=== PATIENT | male | born 1990 | race Caucasian/White ===

== ENCOUNTER 2018-06-22 17:01 | Emergency (ER) | payer OTHER ==
[2018-06-22 17:13] VITALS: BP 136/93
[2018-06-22] MEDS ORDERED: Ondansetron 4 MG/2 ML SDV IVPUSH ONE (17:39)
[2018-06-22] MEDS ORDERED: Sodium Chloride 0.9% 1,000 ML IV ONE (17:39)
[2018-06-22] MEDS ORDERED: Morphine 4 MG/ML Syringe IVPUSH ONE (17:39)
--- NOTE | 2018-06-22 17:44 | EDM.PDOC ---
ED HPI GENERAL MEDICAL PROBLEM - General Chief Complaint: Abdominal Pain Stated Complaint: ABDOMINAL PAIN Time Seen by Provider: 06/22/18 17:06 Source of Information: Reports: Patient History Limitations: Reports: No Limitations - History of Present Illness INITIAL COMMENTS - FREE TEXT/NARRATIVE: 27-year-old male no significant past medical history presenting with a chief complaint of abdominal pain. Pain started 2 days ago. It is located in the left upper quadrant, intermittent, worsening in nature. Associated with nausea and nonbloody nonbilious vomiting. Patient's last bowel movement was yesterday and normal. Patient has no history of abdominal surgeries. Of note his family's been sick recently with nausea and vomiting however they improved and he hasn' t. Patient denies any dysuria or hematuria. Associated Symptoms: Reports: No Other Symptoms Left Upper Abdominal Pain Score (Numeric/FACES): 8 - Related Data Allergies Allergy/AdvReac Type Severity Reaction Status Date / Time No Known Allergies Allergy Verified 06/22/18 17:10 Home Meds: Home Meds Albuterol Sulfate [Proair Hfa] 2 puff INH Q4H PRN 06/22/18 [History] Past Medical History - Past Health History Medical/Surgical History: Denies Medical/Surgical History Respiratory History: Reports: Asthma - Past Surgical History HEENT Surgical History: Reports: Oral Surgery, Tonsillectomy Other Musculoskeletal Surgeries/Procedures:: ganglion removal R wrist Social & Family History - Tobacco Use Smoking Status *Q: Current Every Day Smoker Years of Tobacco use: 13 Packs/Tins Daily: 0.5 - Caffeine Use Caffeine Use: Reports: None - Recreational Drug Use Recreational Drug Use: No ED ROS GENERAL - Review of Systems Review Of Systems: See Below Constitutional: Reports: No Symptoms HEENT: Reports: No Symptoms Respiratory: Reports: No Symptoms Cardiovascular: Reports: No Symptoms Endocrine: Reports: No Symptoms GI/Abdominal: Reports: Abdominal Pain, Nausea, Vomiting : Reports: No Symptoms Musculoskeletal: Reports: No Symptoms Skin: Reports: No Symptoms Neurological: Reports: No Symptoms ED EXAM, GI/ABD - Physical Exam Exam: See Below Exam Limited By: No Limitations General Appearance: Alert, No Apparent Distress Head: Atraumatic, Normocephalic Neck: Normal Inspection Respiratory/Chest: No Respiratory Distress, Lungs Clear Cardiovascular: Regular Rate, Rhythm, No Murmur GI/Abdominal Exam: Other (Abdomen is soft, tender to light palpation of the left upper quadrant with some rebound and guarding) Back Exam: Normal Inspection, Full Range of Motion, Other (No CVA tenderness palpation) Extremities: Normal Inspection Neurological: Alert, Oriented, CN II-XII Intact, No Motor/Sensory Deficits Psychiatric: Normal Affect Skin Exam: Warm, Dry, Intact Lymphatic: No Adenopathy Course - Vital Signs Last Recorded V/S: Last Vital Signs Temp 37.3 C 06/22/18 17:10 Pulse 70 06/22/18 17:10 Resp 16 06/22/18 17:10 BP 136/93 H 06/22/18 17:10 Pulse Ox 98 06/22/18 17:10 - Orders/Labs/Meds Orders: Active Orders 24 hr Category Date Time Status UA W/MICROSCOPIC [URIN] Stat Lab 06/22/18 18:55 Ordered Labs: Laboratory Tests 06/22/18 06/22/18 06/22/18 Range/Units 17:45 17:45 17:45 WBC 10.09 H (4.23-9.07) K/mm3 RBC 5.57 (4.63-6.08) M/mm3 Hgb 16.6 (13.7-17.5) gm/L Hct 49.3 (40.1-51.0) % MCV 88.5 (79.0-92.2) fl MCH 29.8 (25.7-32.2) pg MCHC 33.7 (32.2-35.5) g/dl RDW Std Deviation 41.7 (35.1-43.9) fL Plt Count 280 (163-337) K/mm3 MPV 10.3 (9.4-12.3) fl Neut % (Auto) 60.3 (34.0-67.9) % Lymph % (Auto) 25.0 (21.8-53.1) % [place] % (Auto) 9.7 (5.3-12.2) % Eos % (Auto) 4.2 (0.8-7.0) Baso % (Auto) 0.6 (0.1-1.2) % Neut # (Auto) 6.09 H (1.78-5.38) K/mm3 Lymph # (Auto) 2.52 (1.32-3.57) K/mm3 [place] # (Auto) 0.98 H (0.30-0.82) K/mm3 Eos # (Auto) 0.42 (0.04-0.54) K/mm3 Baso # (Auto) 0.06 (0.01-0.08) K/mm3 Sodium 141 (136-145) mEq/L Potassium 3.9 (3.5-5.1) mEq/L Chloride 104 (98-107) mEq/L Carbon Dioxide 29 (21-32) mEq/L Anion Gap 11.9 (5-15) BUN 7 (7-18) mg/dL Creatinine 1.1 (0.7-1.3) mg/dL Est Cr Clr Drug Dosing 86.59 mL/min Estimated GFR (MDRD) > 60 (>60) mL/min BUN/Creatinine Ratio 6.4 L (14-18) Glucose 104 (74-106) mg/dL Calcium 8.8 (8.5-10.1) mg/dL Total Bilirubin 0.5 (0.2-1.0) mg/dL AST 20 (15-37) U/L ALT 19 (16-63) U/L Alkaline Phosphatase 79 (46-116) U/L Total Protein 7.8 (6.4-8.2) g/dl Albumin 4.2 (3.4-5.0) g/dl Globulin 3.6 gm/dL Albumin/Globulin Ratio 1.2 (1-2) Lipase 126 (73-393) U/L Urine Color (Yellow) Urine Appearance (Clear) Urine pH (5.0-8.0) Ur Specific [place] (1.005-1.030) Urine Protein (Negative) Urine Glucose (UA) (Negative) Urine Ketones (Negative) Urine Occult Blood (Negative) Urine Nitrite (Negative) Urine Bilirubin (Negative) Urine Urobilinogen (0.2-1.0) Ur Leukocyte Esterase (Negative) Urine RBC (0-5) /hpf Urine WBC (0-5) /hpf Ur Epithelial Cells (0-5) /hpf Urine Bacteria (FEW) /hpf Urine Mucus (FEW) /hpf 06/22/18 Range/Units 18:55 WBC (4.23-9.07) K/mm3 RBC (4.63-6.08) M/mm3 Hgb (13.7-17.5) gm/L Hct (40.1-51.0) % MCV (79.0-92.2) fl MCH (25.7-32.2) pg MCHC (32.2-35.5) g/dl RDW Std Deviation (35.1-43.9) fL Plt Count (163-337) K/mm3 MPV (9.4-12.3) fl Neut % (Auto) (34.0-67.9) % Lymph % (Auto) (21.8-53.1) % [place] % (Auto) (5.3-12.2) % Eos % (Auto) (0.8-7.0) Baso % (Auto) (0.1-1.2) % Neut # (Auto) (1.78-5.38) K/mm3 Lymph # (Auto) (1.32-3.57) K/mm3 [place] # (Auto) (0.30-0.82) K/mm3 Eos # (Auto) (0.04-0.54) K/mm3 Baso # (Auto) (0.01-0.08) K/mm3 Sodium (136-145) mEq/L Potassium (3.5-5.1) mEq/L Chloride (98-107) mEq/L Carbon Dioxide (21-32) mEq/L Anion Gap (5-15) BUN (7-18) mg/dL Creatinine (0.7-1.3) mg/dL Est Cr Clr Drug Dosing mL/min Estimated GFR (MDRD) (>60) mL/min BUN/Creatinine Ratio (14-18) Glucose (74-106) mg/dL Calcium (8.5-10.1) mg/dL Total Bilirubin (0.2-1.0) mg/dL AST (15-37) U/L ALT (16-63) U/L Alkaline Phosphatase (46-116) U/L Total Protein (6.4-8.2) g/dl Albumin (3.4-5.0) g/dl Globulin gm/dL Albumin/Globulin Ratio (1-2) Lipase (73-393) U/L Urine Color Yellow (Yellow) Urine Appearance Clear (Clear) Urine pH 7.0 (5.0-8.0) Ur Specific [place] 1.020 (1.005-1.030) Urine Protein Trace H (Negative) Urine Glucose (UA) Negative (Negative) Urine Ketones Negative (Negative) Urine Occult Blood Negative (Negative) Urine Nitrite Negative (Negative) Urine Bilirubin Negative (Negative) Urine Urobilinogen 1.0 (0.2-1.0) Ur Leukocyte Esterase Negative (Negative) Urine RBC Not seen (0-5) /hpf Urine WBC Not seen (0-5) /hpf Ur Epithelial Cells 0-5 (0-5) /hpf Urine Bacteria Not seen (FEW) /hpf Urine Mucus Not seen (FEW) /hpf Meds: Medications Discontinued Medications Generic Name Dose Route Start Last Admin Trade Name Freq PRN Reason Stop Dose Admin Diatrizoate Meglum/Diatrizoate Sod 90 ml 06/22/18 19:38 06/22/18 19:51 Gastrografin 37% PO 06/22/18 19:39 90 ml ONETIME ONE Administration Sodium Chloride 1,000 mls @ 999 mls/hr 06/22/18 17:39 06/22/18 17:56 Normal Saline IV 06/22/18 18:39 999 mls/hr ONETIME ONE Administration Iopamidol 125 ml 06/22/18 19:38 06/22/18 19:51 Isovue-300 (61%) IVPUSH 06/22/18 19:39 125 ml ONETIME ONE Administration Morphine Sulfate 4 mg 06/22/18 17:39 06/22/18 17:56 Morphine IVPUSH 06/22/18 17:40 4 mg ONETIME ONE Administration Ondansetron HCl 4 mg 06/22/18 17:39 06/22/18 17:56 Zofran IVPUSH 06/22/18 17:40 4 mg ONETIME ONE Administration - Re-Assessments/Exams Free Text/Narrative Re-Assessment/Exam: 06/22/18 20:59 27-year-old male with no significant past medical history presenting with a chief complaint of abdominal pain. Upon initial evaluation the patient has normal vital signs and appears nontoxic. Physical exam is notable for tenderness to palpation left upper quadrant some rebound tenderness as well as guarding. Otherwise physical exam is unremarkable. CMP, CBC were normal, urinalysis not suggestive of stone or infection. Due to the patient's physical exam with rebound tenderness and guarding elected to obtain CT imaging of his abdomen which shows no obvious cause for the patient's abdominal pain. Patient was treated initially with 1 L normal saline bolus as well as 4 mg IV Zofran 4 mg IV morphine. Upon reevaluation is improvement of his symptoms. He does tolerate by mouth intake. At this time there is no obvious emergent life- threatening causes abdominal pain and its safer to be discharged. I discussed the results with the patient he stated understanding and had no questions. Patient is directed to follow up with his primary care physician and if he has any new or worsening symptoms to return to the emergency department for reevaluation. Departure - Departure Time of Disposition: 20:51 Disposition: Home, Self-Care 01 Clinical Impression: Abdominal pain Qualifiers: Abdominal location: left upper quadrant Qualified Code(s): R10.12 - Left upper quadrant pain - Discharge Information *PRESCRIPTION DRUG MONITORING PROGRAM REVIEWED*: Not Applicable *COPY OF PRESCRIPTION DRUG MONITORING REPORT IN PATIENT SUSAN: Not Applicable Instructions: Abdominal Pain, Adult, [id number] Referrals: PCP,None [Primary Care Provider] - Forms: ED Department Discharge Additional Instructions: Revaluate in the emergency department for abdominal pain today. At this time there is no indication of any serious cause for abdominal pain. The labs are all normal and the CT scan shows no obvious cause for abdominal pain. It is safe for you to go home tonight. Evidently time he have new or worsening abdominal pain, nausea or vomiting please don't hesitate to re-present to the emergency department for re-evaluation. - My Orders Last 24 Hours: My Active Orders 06/22/18 18:55 UA W/MICROSCOPIC [URIN] Stat - Assessment/Plan Last 24 Hours: My Active Orders 06/22/18 18:55 UA W/MICROSCOPIC [URIN] Stat
[2018-06-22] MEDS ORDERED: Diatrizoate Meglumine/Diatrizoate Sodium 37% 120 ML Bottle PO ONE (19:38)
[2018-06-22] MEDS ORDERED: Iopamidol 612 MG/ML 150 ML Bottle IVPUSH ONE (19:38)
--- NOTE | 2018-06-22 20:12 | CT ---
CT abdomen and pelvis Technique: Multiple axial sections were obtained from above the dome of the diaphragm inferiorly through the pubic symphysis. Intravenous and oral contrast was utilized. Delayed images were obtained through the bladder. Comparison: No prior CT abdomen or pelvis study. Findings: Visualized lung bases shows nothing acute. Liver shows no focal parenchymal abnormality. Spleen appears within normal limits. Adrenal glands show no nodule. Pancreas is within normal limits. Kidneys show symmetric contrast enhancement without hydronephrosis or mass. Gallbladder contains no calcified gallstones. Aorta shows no aneurysmal dilatation. No retroperitoneal adenopathy or mesenteric abnormalities are seen. No pelvic mass or adenopathy is seen. Delayed images shows contrast within the distal ureters and within the bladder. No free fluid or inflammatory change is seen. Appendix is seen and appears normal in size. Bone window settings were reviewed which appear within normal limits for the patient's age. Impression: 1. No abnormality is identified on CT study of the abdomen and pelvis. Diagnostic code #1
== END 2018-06-22 21:00 | disposition home or self-care (01) ==
LOC: JD.ED 17:01
DX: R10.12 Left upper quadrant pain (principal); F17.210 Nicotine dependence, cigarettes, uncomplicated; J45.909 Unspecified asthma, uncomplicated; Z79.899 Other long term (current) drug therapy
CPT/HCPCS: 36415; 74177; 80053; 81001; 83690; 85025; 96361; 96374; 96375; 99284; J2270; J2405; J7040; Q9963; Q9967

== ENCOUNTER 2019-09-02 12:06 | Emergency (ER) | payer BC ==
[2019-09-02 12:17] VITALS: BP 130/89; PULSE 81
--- NOTE | 2019-09-02 12:36 | EDM.PDOC ---
ED HPI GENERAL MEDICAL PROBLEM - General Chief Complaint: Genitourinary Problem Stated Complaint: URINATING BLOOD,SWOLLEN GENITALS Time Seen by Provider: 09/02/19 12:18 Source of Information: Reports: Patient History Limitations: Reports: No Limitations - History of Present Illness INITIAL COMMENTS - FREE TEXT/NARRATIVE: Patient presents with onset of a left red spot in the left groin area he noticed it first about Tuesday. He had been swimming last weekend and his noted. He started having more pain then since that first red spot occurred and now to the point where it's in the home groin infection seems to radiate down his left thigh. He is any pain or swelling in the scrotum or testicle. He has developed a small "pimple" on the left side of the penile shaft. He denies any fevers chills or sweats no nausea or vomiting. Last evening he had onset of bloody urine. He has frequency and urgency. No flank pain noted. No weight loss or weight changes. Appetite stable. No coughing cold symptoms chest pain or breathing problems. Denies any frequent sexual encounters, is monogamous. Denies any history of any STDs. Does smoke cigarettes otherwise history of asthma. Denies any history of any diabetes or immune dysfunction Onset Date: 08/29/19 Duration: Day(s):, Getting Worse Location: Reports: Pelvis, Radiates to (Left groin and now spot on the penis) Quality: Reports: Ache, Throbbing Severity: Moderate Improves with: Reports: Medication Associated Symptoms: Denies: Fever/Chills, Loss of Appetite, Malaise, Nausea/ Vomiting, Rash, Shortness of Breath Treatments IT SYSTEMS ANALYST: Reports: NSAIDS Scrotum Pain Score (Numeric/FACES): 8 - Related Data Allergies Allergy/AdvReac Type Severity Reaction Status Date / Time No Known Allergies Allergy Verified 09/02/19 12:17 [facility] Home Meds: Home Meds Albuterol Sulfate [Proair Hfa] 2 puff INH Q4H PRN 06/22/18 [History] Doxycycline [Vibramycin] 100 mg PO BID #20 cap 09/02/19 [Rx] Past Medical History - Past Health History Medical/Surgical History: Denies Medical/Surgical History Respiratory History: Reports: Asthma - Past Surgical History HEENT Surgical History: Reports: Oral Surgery, Tonsillectomy Musculoskeletal Surgical History: Reports: Arthroscopic Knee Other Musculoskeletal Surgeries/Procedures:: ganglion removal R wrist Social & Family History - Family History Family Medical History: Noncontributory - Tobacco Use Smoking Status *Q: Current Every Day Smoker Years of Tobacco use: 13 Packs/Tins Daily: 0.5 - Caffeine Use Caffeine Use: Reports: Coffee, Energy Drinks, Soda, Tea - Recreational Drug Use Recreational Drug Use: No ED ROS GENERAL - Review of Systems Review Of Systems: See Below Constitutional: Denies: Weakness, Diaphoresis, Decreased Appetite Respiratory: Reports: No Symptoms Cardiovascular: Reports: No Symptoms GI/Abdominal: Reports: No Symptoms. Denies: Abdominal Pain, Diarrhea, Decreased Appetite, Nausea, Vomiting : Reports: Frequency, Hematuria, Pain, Urgency. Denies: Discharge, Flank Pain Musculoskeletal: Reports: No Symptoms Skin: Reports: Rash, Lesions Neurological: Reports: No Symptoms. Denies: Dizziness, Headache Psychiatric: Reports: No Symptoms Hematologic/Lymphatic: Reports: No Symptoms Immunologic: Reports: No Symptoms ED EXAM, RENAL/ - Physical Exam Exam: See Below Exam Limited By: No Limitations General Appearance: Alert, WD/WN, No Apparent Distress Head: Atraumatic, Normocephalic Respiratory/Chest: No Respiratory Distress, Lungs Clear, Normal Breath Sounds, No Accessory Muscle Use Cardiovascular: Normal Peripheral Pulses, Regular Rate, Rhythm, No Edema, No Gallop GI/Abdominal: Normal Bowel Sounds, Soft, No Distention, Tender, Other (Left lower quadrant, left groin area. A quarter-sized reddened area to the left groin. There is fullness in that same area. There is no focal adenopathy noted a red streaking. No obvious hernia noted.) (Male) Exam: No Hernia, Penile Lesions, Rash. No: Hernia, Scrotal Swelling, Scrotum Tenderness (L), Scrotum Tenderness (R), Suprapubic Fullness, Testicular Mass, Testicular Tenderness (L), Testicular Tenderness (R) (Small red papule on the left side of the penile shaft. There is no red streaking, or pain, no epididymitis or epididymal swelling. No penile discharge) Neurological: Alert, Oriented Psychiatric: Normal Affect, Normal Mood Course - Vital Signs Text/Narrative:: Exam, IV for IV contrasted CT of the pelvis, labs, rule out deep space infection , adenitis, STD, lymphadenopathy, lymphoma, cellulitis Last Recorded V/S: Last Vital Signs Temp 98.2 F 09/02/19 16:04 [facility] Pulse 81 09/02/19 16:04 MST Resp 14 09/02/19 12:14 [facility] BP 130/89 09/02/19 16:04 [facility] Pulse Ox 100 09/02/19 16:04 [facility] - Orders/Labs/Meds Orders: Active Orders 24 hr Category Date Time Status Peripheral IV Care [RC] . DIRECTED Care 09/02/19 12:38 Active Peripheral IV Insertion Adult [OM.PC] Stat Oth 09/02/19 12:37 Ordered Labs: Laboratory Tests 09/02/19 09/02/19 09/02/19 Range/Units 12:40 MST 13:05 MST 13:05 [facility] WBC 8.94 (4.23-9.07) K/mm3 RBC 5.53 (4.63-6.08) M/mm3 Hgb 16.4 (13.7-17.5) gm/dl Hct 49.2 (40.1-51.0) % MCV 89.0 (79.0-92.2) fl MCH 29.7 (25.7-32.2) pg MCHC 33.3 (32.2-35.5) g/dl RDW Std Deviation 43.5 (35.1-43.9) fL Plt Count 366 H D (163-337) K/mm3 MPV 9.7 (9.4-12.3) fl Neutrophils % (Manual) 60 (40-60) % Band Neutrophils % 0 (0-10) % Lymphocytes % (Manual) 24 (20-40) % Atypical Lymphs % 0 % Monocytes % (Manual) 13 H (2-10) % Eosinophils % (Manual) 2 (0.8-7.0) % Basophils % (Manual) 1 (0.2-1.2) Platelet Estimate Adequate RBC Morph Comment Normal Sodium 145 (136-145) mEq/L Potassium 4.2 (3.5-5.1) mEq/L Chloride 106 (98-107) mEq/L Carbon Dioxide 29 (21-32) mEq/L Anion Gap 14.2 (5-15) BUN 7 (7-18) mg/dL Creatinine 0.9 (0.7-1.3) mg/dL Est Cr Clr Drug Dosing 102.56 mL/min Estimated GFR (MDRD) > 60 (>60) mL/min BUN/Creatinine Ratio 7.8 L (14-18) Glucose 98 (74-106) mg/dL Lactic Acid (0.4-2.1) mmol/L Calcium 8.9 (8.5-10.1) mg/dL Total Bilirubin 0.6 (0.2-1.0) mg/dL AST 20 (15-37) U/L ALT 17 (16-63) U/L Alkaline Phosphatase 75 (46-116) U/L C-Reactive Protein < 0.2 (<1.0) mg/dL Total Protein 8.4 H (6.4-8.2) g/dl Albumin 4.4 (3.4-5.0) g/dl Globulin 4.0 gm/dL Albumin/Globulin Ratio 1.1 (1-2) Urine Color Yellow (Yellow) Urine Appearance Clear (Clear) Urine pH 6.5 (5.0-8.0) Ur Specific [place] 1.015 (1.005-1.030) Urine Protein Negative (Negative) Urine Glucose (UA) Negative (Negative) Urine Ketones Negative (Negative) Urine Occult Blood Negative (Negative) Urine Nitrite Negative (Negative) Urine Bilirubin Negative (Negative) Urine Urobilinogen 0.2 (0.2-1.0) Ur Leukocyte Esterase Negative (Negative) Urine RBC Not seen (0-5) /hpf Urine WBC Not seen (0-5) /hpf Ur Epithelial Cells 0-5 (0-5) /hpf Urine Bacteria Not seen (FEW) /hpf Urine Mucus Not seen (FEW) /hpf 09/02/19 Range/Units 13:05 MST WBC (4.23-9.07) K/mm3 RBC (4.63-6.08) M/mm3 Hgb (13.7-17.5) gm/dl Hct (40.1-51.0) % MCV (79.0-92.2) fl MCH (25.7-32.2) pg MCHC (32.2-35.5) g/dl RDW Std Deviation (35.1-43.9) fL Plt Count (163-337) K/mm3 MPV (9.4-12.3) fl Neutrophils % (Manual) (40-60) % Band Neutrophils % (0-10) % Lymphocytes % (Manual) (20-40) % Atypical Lymphs % % Monocytes % (Manual) (2-10) % Eosinophils % (Manual) (0.8-7.0) % Basophils % (Manual) (0.2-1.2) Platelet Estimate RBC Morph Comment Sodium (136-145) mEq/L Potassium (3.5-5.1) mEq/L Chloride (98-107) mEq/L Carbon Dioxide (21-32) mEq/L Anion Gap (5-15) BUN (7-18) mg/dL Creatinine (0.7-1.3) mg/dL Est Cr Clr Drug Dosing mL/min Estimated GFR (MDRD) (>60) mL/min BUN/Creatinine Ratio (14-18) Glucose (74-106) mg/dL Lactic Acid 0.7 (0.4-2.1) mmol/L Calcium (8.5-10.1) mg/dL Total Bilirubin (0.2-1.0) mg/dL AST (15-37) U/L ALT (16-63) U/L Alkaline Phosphatase (46-116) U/L C-Reactive Protein (<1.0) mg/dL Total Protein (6.4-8.2) g/dl Albumin (3.4-5.0) g/dl Globulin gm/dL Albumin/Globulin Ratio (1-2) Urine Color (Yellow) Urine Appearance (Clear) Urine pH (5.0-8.0) Ur Specific [place] (1.005-1.030) Urine Protein (Negative) Urine Glucose (UA) (Negative) Urine Ketones (Negative) Urine Occult Blood (Negative) Urine Nitrite (Negative) Urine Bilirubin (Negative) Urine Urobilinogen (0.2-1.0) Ur Leukocyte Esterase (Negative) Urine RBC (0-5) /hpf Urine WBC (0-5) /hpf Ur Epithelial Cells (0-5) /hpf Urine Bacteria (FEW) /hpf Urine Mucus (FEW) /hpf Meds: Medications Discontinued Medications Generic Name Dose Route Start Last Admin Trade Name Freq PRN Reason Stop Dose Admin Sodium Chloride 500 mls @ 250 mls/hr 09/02/19 12:38 MST 09/02/19 13:04 MST Normal Saline IV 09/02/19 14:37 MST 250 mls/hr .BOLUS ONE Administration Ceftriaxone Sodium 1 gm/ 100 mls @ 200 mls/hr 09/02/19 15:21 MST 09/02/19 15: 33 MST Sodium Chloride IV 09/02/19 15:50 MST 200 mls/hr ONETIME ONE Administration Iopamidol 100 ml 09/02/19 12:59 MST 09/02/19 13:41 MST Isovue-300 (61%) IVPUSH 09/02/19 13:00 MST 100 ml ONETIME ONE Administration Sodium Chloride 10 ml 09/02/19 12:38 MST 09/02/19 13:41 MST Saline Flush FLUSH 10 ml ASDIRECTED PRN Administration Keep Vein Open Sodium Chloride 10 ml 09/02/19 12:59 MST 09/02/19 13:05 MST Saline Flush FLUSH 09/02/19 13:00 MST 10 ml ONETIME ONE Administration - Radiology Interpretation Free Text/Narrative:: CT scan is reviewed and shows no acute findings. There is no acute pelvic abnormalities especially any pelvic abscess, no signs of any hernia, no bowel changes. 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 We'll give him 1 dose of IV Rocephin, I'll treat him with doxycycline 100 mg twice a day for 10 day course. Will need follow-up regarding test of cure and/or recheck evaluation to make sure he is improved/resolved of his symptoms. CT Results Date: 09/02/19 - Re-Assessments/Exams Free Text/Narrative Re-Assessment/Exam: 09/02/19 13:51 Urinalysis is unremarkable, no gross or microscopic hematuria, no signs of infection on the urinalysis. White count is normal, platelet count mildly elevated at 389, creatinine normal, blood sugars normal, no acute abnormalities otherwise on the chemistry panel. CT scan is pending. 09/02/19 21:04 Suspect maybe could be early cellulitis rule out for STD, placed on doxycycline 100 twice a day for 10 days, given a dose of Rocephin. Recommend that he get follow-up this week, strict return precautions given Departure - Departure Time of Disposition: 14:29 Disposition: Home, Self-Care 01 Condition: Good Clinical Impression: Cellulitis of groin, left - Discharge Information *PRESCRIPTION DRUG MONITORING PROGRAM REVIEWED*: Not Applicable *COPY OF PRESCRIPTION DRUG MONITORING REPORT IN PATIENT SUSAN: Not Applicable Prescriptions: Doxycycline [Vibramycin] 100 mg PO BID #20 cap Instructions: Cellulitis, Adult, [id number] Referrals: PCP,None [Primary Care Provider] - Health , Clinic [Other] Forms: ED Department Discharge - My Orders Last 24 Hours: My Active Orders 09/02/19 12:37 Peripheral IV Insertion Adult [OM.PC] Stat 09/02/19 12:38 Peripheral IV Care [RC] . DIRECTED - Assessment/Plan Last 24 Hours: My Active Orders 09/02/19 12:37 Peripheral IV Insertion Adult [OM.PC] Stat 09/02/19 12:38 Peripheral IV Care [RC] . DIRECTED
[2019-09-02] MEDS ORDERED: Sodium Chloride 0.9% 10 ML Syringe FLUSH PRN (12:38)
[2019-09-02] MEDS ORDERED: Sodium Chloride 0.9% 500 ML IV ONE (12:38)
[2019-09-02] MEDS ORDERED: Iopamidol 612 MG/ML 100 ML Bottle IVPUSH ONE (12:59)
[2019-09-02] MEDS: Sodium Chloride 0.9% 10 ML Syringe FLUSH ONE (13:05)
--- NOTE | 2019-09-02 14:06 | CT ---
CT abdomen and pelvis Technique: Multiple axial sections were obtained from low the top of the liver inferiorly through the pubic symphysis. Intravenous contrast was utilized. No oral contrast given. Details are somewhat diminished due to lack of oral contrast and lack of intra-abdominal fat. Delayed images were also obtained through the abdomen and pelvis. Comparison: Prior CT abdomen and pelvis exam of 06/22/18. Findings: Visualized lung bases show nothing acute. Liver contains no focal abnormality. Adrenal glands show no nodule. Kidneys show symmetric contrast enhancement. Delayed images shows no cyst or solid abnormality within the kidneys. No filling defects are seen within the collecting systems. Right and left ureters are seen down to the bladder which appear within normal limits. Appendix not definitely visualized. No inguinal hernia is noted. Aorta shows no aneurysm. Gallbladder shows no calcified gallstones. Pancreas not optimally seen but shows no discrete abnormality. No retroperitoneal adenopathy is seen. No discrete mesenteric abnormalities are seen. No discrete pelvic abnormality is seen. Bone window settings were reviewed which appear within normal limits for the patient's age. Impression: 1. Somewhat limited study due to lack of oral contrast. 2. Within the limitations as noted above, no abnormality is appreciated on CT study of the abdomen and pelvis. Diagnostic code #2
[2019-09-02] MEDS ORDERED: cefTRIAXone 1 GM Vial IM ONE (14:21)
[2019-09-02] MEDS ORDERED: cefTRIAXone 1 GM in Sodium Chloride 0.9% 100 ML IV ONE (15:21)
== END 2019-09-02 16:04 | disposition home or self-care (01) ==
LOC: JD.ED 12:06
DX: L03.314 Cellulitis of groin (principal); J45.909 Unspecified asthma, uncomplicated; F17.210 Nicotine dependence, cigarettes, uncomplicated; Z79.899 Other long term (current) drug therapy
CPT/HCPCS: 36415; 74177; 80053; 81001; 83605; 85007; 85027; 86140; 96361; 96365; 99284; J0696; J7030; J7040; Q9967; 99283

== ENCOUNTER 2019-10-11 16:36 | Emergency (ER) | payer BC ==
[2019-10-11 16:54] VITALS: BP 125/77; PULSE 72
--- NOTE | 2019-10-11 16:55 | EDM.PDOC ---
ED HPI GENERAL MEDICAL PROBLEM - General Chief Complaint: Upper Extremity Injury/Pain Stated Complaint: RIGHT PINKY INJURY Time Seen by Provider: 10/11/19 16:50 Source of Information: Reports: Patient History Limitations: Reports: No Limitations - History of Present Illness INITIAL COMMENTS - FREE TEXT/NARRATIVE: Patient's unfortunate 28-year-old male presents with a complaint of right pinky pain. Patient reports Mrs. Nicole of [facility] until approximately 5 PM last night he actually slammed his right peak of his car. Patient reports she had pain and swelling since. 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 Distal neurovascular is intact, range of motion decreased secondary to pain Right Finger-Little Pain Score (Numeric/FACES): 6 - Related Data Allergies Allergy/AdvReac Type Severity Reaction Status Date / Time No Known Allergies Allergy Verified 09/02/19 12:17 Home Meds: Home Meds Albuterol Sulfate [Proair Hfa] 2 puff INH Q4H PRN 06/22/18 [History] Past Medical History - Past Health History Medical/Surgical History: Denies Medical/Surgical History Respiratory History: Reports: Asthma - Past Surgical History HEENT Surgical History: Reports: Oral Surgery, Tonsillectomy Musculoskeletal Surgical History: Reports: Arthroscopic Knee Other Musculoskeletal Surgeries/Procedures:: ganglion removal R wrist Social & Family History - Family History Family Medical History: Noncontributory - Caffeine Use Caffeine Use: Reports: Coffee, Energy Drinks, Soda, Tea Review of Systems - Review of Systems Review Of Systems: See Below Musculoskeletal: Reports: Joint Pain ED EXAM, GENERAL - Physical Exam Exam: See Below Exam Limited By: No Limitations General Appearance: Alert, WD/WN, Mild Distress Respiratory/Chest: No Respiratory Distress, Lungs Clear, Normal Breath Sounds, No Accessory Muscle Use, Chest Non-Tender Cardiovascular: Normal Peripheral Pulses, Regular Rate, Rhythm, No Edema, No Gallop, No JVD, No Murmur, No Rub GI/Abdominal: Normal Bowel Sounds, Soft, Non-Tender, No Organomegaly, No Distention, No Abnormal Bruit, No Mass Extremities: Other (Contusion on the dorsum of the right fifth finger middle phalanx and ecchymosis on the volar aspect of the right fifth finger middle phalanx proximal phalanx with mild tenderness that extends into the MCP joint distal neurovascular is intact) Neurological: Alert Skin Exam: Warm, Dry, No Rash Course - Vital Signs Last Recorded V/S: Last Vital Signs Temp 98.0 F 10/11/19 16:50 Pulse 72 10/11/19 16:50 Resp 16 10/11/19 16:50 BP 125/77 10/11/19 16:50 Pulse Ox 100 10/11/19 16:50 - Orders/Labs/Meds Orders: Active Orders 24 hr Category Date Time Status Fingers Fifth Digit Rt F9 [CR] Stat Exams 10/11/19 16:53 Taken - Re-Assessments/Exams Free Text/Narrative Re-Assessment/Exam: 10/11/19 17:10 Left small finger interpreted by me NAD Departure - Departure Time of Disposition: 17:10 Disposition: Home, Self-Care 01 Clinical Impression: Contusion of finger of right hand Qualifiers: Encounter type: initial encounter Finger: little finger Damage to nail status: without damage Qualified Code(s): S60.051A - Contusion of right little finger without damage to nail, initial encounter - Discharge Information Referrals: PCP,None [Primary Care Provider] - Forms: ED Department Discharge Additional Instructions: Home, rest, ice, elevate, Tylenol for pain, return as needed for worsening condition Sepsis Event Note - Focused Exam Vital Signs: Vital Signs Temp Pulse Resp BP Pulse Ox 10/11/19 16:50 98.0 F 72 16 125/77 100 Date Exam was Performed: 10/11/19 Time Exam was Performed: 17:10 - My Orders Last 24 Hours: My Active Orders 10/11/19 16:53 Fingers Fifth Digit Rt F9 [CR] Stat - Assessment/Plan Last 24 Hours: My Active Orders 10/11/19 16:53 Fingers Fifth Digit Rt F9 [CR] Stat
--- NOTE | 2019-10-12 07:49 | CR ---
Right 5th finger: Four views of the right 5th finger were obtained. Comparison: No previous finger exam. Joint spaces are preserved. No fracture or focal erosions are seen. No soft tissue foreign body is seen. Impression: 1. No abnormality is appreciated on right 5th finger exam. Diagnostic code #1 This report was dictated in [place] Standard Time
== END 2019-10-11 17:25 | disposition home or self-care (01) ==
LOC: JD.ED 16:36
DX: S60.051A Contusion of right little finger without damage to nail, initial encounter (principal); Z98.890 Other specified postprocedural states; W23.1XXA Caught, crushed, jammed, or pinched between stationary objects, initial encounter
CPT/HCPCS: 73140-26-F9; 73140-F9; 99282; 99283-25

== ENCOUNTER 2020-08-13 07:24 | Day surgery (SDC) | payer BC, SELFPAY ==
--- NOTE | 2020-08-12 11:55 | PCM.PREANE ---
<Edna Carter M - Last Filed: 08/13/20 07:23> Preanesthetic Assessment - Anesthesia/Transfusion/Family Hx Anesthesia History: Prior Anesthesia Without Reaction Family History of Anesthesia Reaction: No Transfusion History: No Prior Transfusion(s) Intubation History: Unknown - Review of Systems General: No Symptoms Pulmonary: No Symptoms, Wheezing (4 days ago with asthma) Cardiovascular: No Symptoms Gastrointestinal: No Symptoms Neurological: No Symptoms, Numbness Other: Reports: None - Physical Assessment NPO Status Time: 17:30 Weight: 58.513 kg ASA Class: 2 Mental Status: Alert & Oriented x3 Airway Class: Mallampati = 1 Dentition: Reports: Normal Dentition Thyro-Mental Finger Breadths: 3 Mouth Opening Finger Breadths: 3 ROM/Head Extension: Full Lungs: Clear to Auscultation, Normal Respiratory Effort Cardiovascular: Regular Rate, Regular Rhythm - Allergies Allergies/Adverse Reactions: Allergies Allergy/AdvReac Type Severity Reaction Status Date / Time No Known Allergies Allergy Verified 09/02/19 12:17 - Blood Blood Available: No - Anesthesia Plan Pre-Op Medication Ordered: None - Acknowledgements Anesthesia Type Planned: MARIA C Pt an Appropriate Candidate for the Planned Anesthesia: Yes Alternatives and Risks of Anesthesia Discussed w Pt/Guardian: Yes Pt/Guardian Understands and Agrees with Anesthesia Plan: Yes PreAnesthesia Questionnaire Cardiovascular History: Reports: None Respiratory History: Reports: Asthma Gastrointestinal History: Reports: None Musculoskeletal History: Reports: None Oncologic (Cancer) History: Reports: None - Past Surgical History HEENT Surgical History: Reports: Oral Surgery, Tonsillectomy Musculoskeletal Surgical History: Reports: Arthroscopic Knee - SUBSTANCE USE Tobacco Use Status *Q: Current Every Day Tobacco User Tobacco Use Within Last Twelve Months: Cigarettes Second Hand Smoke Exposure: Yes Days Per Week of Alcohol Use: 3 Number of Drinks Per Day: 4 Total Drinks Per Week: 12 Recreational Drug Use History: No - HOME MEDS Home Medications: Home Meds Albuterol Sulfate [Proair Hfa] 2 puff INH Q4H PRN 06/22/18 [History] Acetaminophen/HYDROcodone [[place] 325-5 MG] 1 - 2 tab PO Q6H PRN #10 tablet 08/13/20 [Rx] <Randa King - Last Filed: 08/14/20 13:18> Preanesthetic Assessment - Procedure Proposed Procedure: Right wrist ganglion cyst excision - Anesthesia/Transfusion/Family Hx Anesthesia History: Prior Anesthesia Without Reaction Family History of Anesthesia Reaction: No Transfusion History: No Prior Transfusion(s) Intubation History: Unknown - Review of Systems Pulmonary: No Symptoms (Asthma, Smoker: 1/2ppd times 15 years, ETOH:6 beers per week) Neurological: Numbness (Right hand ganglian) - Physical Assessment NPO Status Date: 08/12/20 Vital Signs: HR: Sat: Temp: Resp: B/P: Height: 1.78 m ASA Class: 2 Mental Status: Alert & Oriented x3 - Lab Values: Laboratory Last Values SARS-CoV-2 RNA (SIMA) Negative (NEGATIVE) 08/11/20 14:45 MRSA (PCR) Negative 08/08/20 09:24 All labs reviewed and noted and within acceptable ranges to proceed with scheduled procedure. - Anesthesia Plan Pre-Op Medication Ordered: None - Acknowledgements Anesthesia Type Planned: MARIA C Pt an Appropriate Candidate for the Planned Anesthesia: Yes Alternatives and Risks of Anesthesia Discussed w Pt/Guardian: Yes Pt/Guardian Understands and Agrees with Anesthesia Plan: Yes PreAnesthesia Questionnaire - Past Health History Medical/Surgical History: Denies Medical/Surgical History Respiratory History: Reports: Asthma - Infectious Disease History Infectious Disease History: Reports: Chicken Pox - Past Surgical History HEENT Surgical History: Reports: Oral Surgery, Tonsillectomy Musculoskeletal Surgical History: Reports: Arthroscopic Knee Other Musculoskeletal Surgeries/Procedures:: ganglion removal R wrist - CURRENT (IN HOUSE) MEDS Current Meds: Current Medications Lactated Ringer's (Ringers, Lactated) 1,000 mls @ 125 mls/hr IV ASDIRECTED SRIDHAR Stop: 08/13/20 23:00 Lidocaine/Sodium Bicarbonate (Buffered Lidocaine 1% In Ns 8.4%) 0.25 ml IDERM ONETIME PRN PRN Reason: Prior to IV Start Stop: 08/13/20 18:00 Sodium Chloride (Saline Flush) 10 ml FLUSH ASDIRECTED PRN PRN Reason: Keep Vein Open Stop: 08/13/20 18:00 Discontinued Medications Fentanyl (Sublimaze) Confirm Administered Dose 100 mcg .ROUTE .STK-MED ONE Stop: 08/13/20 06:47 Lidocaine HCl (Xylocaine-Mpf 1%) Confirm Administered Dose 4 mls @ as directed .ROUTE .STK-MED ONE Stop: 08/13/20 06:47 Lidocaine HCl (Xylocaine-Mpf 0.5%) Confirm Administered Dose 50 ml .ROUTE .STK- MED ONE Stop: 08/13/20 06:47 Midazolam HCl (Versed 1 Mg/Ml) Confirm Administered Dose 2 mg .ROUTE .STK-MED ONE Stop: 08/13/20 06:47 Propofol (Diprivan 20 Ml) Confirm Administered Dose 200 mg .ROUTE .STK-MED ONE Stop: 08/13/20 06:47 Sodium Bicarbonate (Sodium Bicarbonate 8.4%) Confirm Administered Dose 50 meq .ROUTE .STK-MED ONE Stop: 08/13/20 06:47
[~2020-08-13 07:24] MED LIST: Lactated Ringers 1,000 ML IV SCH; Lidocaine 0.5% 50 ML SDV ONE; Lidocaine 1% 4 ML ONE; Lidocaine 1%/Sod Bicarbonate in NS 8.4% 1 ML Syringe IDERM PRN; Midazolam 1 MG/ML 2 ML SDV ONE; Propofol 200 MG/20 ML SDV ONE; Sodium Bicarbonate 8.4% 50 MEQ/50 ML SDV ONE; Sodium Chloride 0.9% 10 ML Syringe FLUSH PRN; fentaNYL 100 MCG/2 ML SDV ONE
[2020-08-13] MEDS ORDERED: Bupivacaine 0.25% 10 ML SDV ONE ×2 (07:56→08:25)
[2020-08-13] MEDS ORDERED: Ketorolac 30 MG/ML SDV ONE (09:01)
[2020-08-13] MEDS ORDERED: Ondansetron 4 MG/2 ML SDV IVPUSH PRN (09:09)
[2020-08-13] MEDS ORDERED: HYDROmorphone 0.5 MG/0.5 ML Syringe IVPUSH PRN (09:09)
[2020-08-13] MEDS ORDERED: fentaNYL 100 MCG/2 ML SDV IVPUSH PRN (09:09)
--- NOTE | 2020-08-13 09:45 | PCM48HPAN ---
Post Anesthesia Note - EVALUATION WITHIN 48HRS OF ANESTHETIC Vital Signs in Normal Range: Yes Patient Participated in Evaluation: Yes Respiratory Function Stable: Yes Airway Patent: Yes Cardiovascular Function Stable: Yes Hydration Status Stable: Yes Pain Control Satisfactory: Yes Nausea and Vomiting Control Satisfactory: Yes Mental Status Recovered: Yes Vital Signs: Last Vital Signs Temp 97.8 F 08/13/20 07:25 Pulse 83 08/13/20 07:25 Resp 16 08/13/20 07:25 BP 133/80 08/13/20 07:25 Pulse Ox 97 08/13/20 07:25 0939 64 16 97.3 112/64 100%
[2020-08-13 09:46] VITALS: BP 112/64; PULSE 64
--- NOTE | 2020-08-22 07:40 | PCM.OPNOTE ---
- General Post-Op/Procedure Note Date of Surgery/Procedure: 08/13/20 Operative Procedure(s): excision right wrist ganglion cyst Pre Op Diagnosis: recurrent dorsal ganglion right wrist Post-Op Diagnosis: Same Anesthesia Technique: Regional Block Primary Surgeon: Jacobo Marcos Anesthesia Provider: Edna Carter Cheese Pancake Roller: Carmen Mcclellan in mLs: 5 Complications: None Condition: Good
--- NOTE | 2020-08-26 06:08 | OR ---
DATE OF OPERATION: 08/13/2020 SURGEON: Jacobo Marcos MD OPERATION PERFORMED: Excision of right wrist ganglion cyst. PREOPERATIVE DIAGNOSIS: Recurrent dorsal ganglion, right wrist. POSTOPERATIVE DIAGNOSIS: Recurrent dorsal ganglion, right wrist. ANESTHESIA: Regional [place] block. ANESTHESIA PROVIDER: Edna Carter CRNA PAVING SUPERVISOR: Carmen Mcclellan PA-C. ESTIMATED BLOOD LOSS: Less than 5 mL. COMPLICATIONS: None. CONDITION: Stable. DESCRIPTION OF PROCEDURE: The patient was identified in the preoperative holding area. Proper site was marked and identified by the surgeon. The patient was taken back to the operating theater where after adequate anesthesia, the patient's right upper extremity was sterilely prepped and draped in the usual sterile fashion. OR time-out was performed. The patient received 2 g IV Ancef before the [place] block. At this time, a standard longitudinal incision was made centered over the dorsum of the right wrist over the ganglion cyst. This was taken down to the stalk of the ganglion cyst. The ganglion cyst was then incised in whole. A cautery as well as 3-0 Vicryl suture was used to close the small rent in the capsule. Adequate saline was then irrigated through the wound. 3-0 Vicryl was used subcutaneously, Monocryl was used for closure of the skin. The patient was placed in a sterile soft dressing and sent to the PACU in stable condition. MMODAL /[id number]
== END 2020-08-13 10:11 | disposition home or self-care (01) ==
LOC: JD.SDS 07:24
PROVIDERS: ATTEND Orthopaedic Surgery
DX: M67.431 Ganglion, right wrist (principal); Z01.812 Encounter for preprocedural laboratory examination; Z20.828 Contact with and (suspected) exposure to other viral communicable diseases; J45.40 Moderate persistent asthma, uncomplicated; F17.210 Nicotine dependence, cigarettes, uncomplicated; Z79.899 Other long term (current) drug therapy
CPT/HCPCS: 25112; 87635; 87641; J1885; J2001; J2250; J2704; J3010; J3490; J7120; 01810; U0002

== ENCOUNTER 2020-09-15 12:51 | Day surgery (SDC) | payer BC ==
[2020-09-15] MEDS ORDERED: Lidocaine 1%/Sod Bicarbonate in NS 8.4% 1 ML Syringe IDERM PRN (13:23)
[2020-09-15] MEDS ORDERED: Sodium Chloride 0.9% 10 ML Syringe FLUSH PRN (13:23)
[2020-09-15] MEDS ORDERED: Lactated Ringers 1,000 ML IV SCH (13:30)
[2020-09-15] MEDS ORDERED: Lidocaine 1% 30 ML SDV ONE (13:48)
[2020-09-15] MEDS ORDERED: Bupivacaine 0.25% 10 ML SDV ONE ×2 (13:48)
[2020-09-15] MEDS ORDERED: Midazolam 1 MG/ML 2 ML SDV ONE (14:13)
[2020-09-15] MEDS ORDERED: Propofol 200 MG/20 ML SDV ONE (14:13)
[2020-09-15] MEDS ORDERED: fentaNYL 100 MCG/2 ML SDV ONE (14:13)
--- NOTE | 2020-09-15 14:13 | PCM.PREANE ---
Preanesthetic Assessment - Procedure Proposed Procedure: I and D right dorsal wrist - Anesthesia/Transfusion/Family Hx Anesthesia History: Prior Anesthesia Without Reaction Family History of Anesthesia Reaction: No Transfusion History: No Prior Transfusion(s) Intubation History: Unknown - Review of Systems General: No Symptoms Pulmonary: No Symptoms Cardiovascular: No Symptoms Gastrointestinal: No Symptoms Neurological: No Symptoms Other: Reports: None - Physical Assessment NPO Status Date: 09/14/20 NPO Status Time: 00:00 Vital Signs: Last Vital Signs Temp 36.7 C 09/15/20 12:50 Pulse 70 09/15/20 12:50 Resp 16 09/15/20 12:50 BP 132/81 09/15/20 12:50 Pulse Ox 100 09/15/20 12:50 Height: 1.78 m Weight: 58.513 kg ASA Class: 2 Mental Status: Alert & Oriented x3 Airway Class: Mallampati = 1 Dentition: Reports: Normal Dentition, [place](s) Thyro-Mental Finger Breadths: 3 Mouth Opening Finger Breadths: 3 ROM/Head Extension: Full Lungs: Clear to Auscultation, Normal Respiratory Effort Cardiovascular: Regular Rate, Regular Rhythm - Lab Values: Laboratory Last Values SARS-CoV-2 RNA (SIMA) Negative (NEGATIVE) 09/15/20 11:15 MRSA (PCR) Negative 09/15/20 10:35 - Allergies Allergies/Adverse Reactions: Allergies Allergy/AdvReac Type Severity Reaction Status Date / Time No Known Allergies Allergy Verified 09/02/19 12:17 - Blood Blood Available: No Product(s) Available: None - Anesthesia Plan Pre-Op Medication Ordered: None - Acknowledgements Anesthesia Type Planned: MAC Pt an Appropriate Candidate for the Planned Anesthesia: Yes Alternatives and Risks of Anesthesia Discussed w Pt/Guardian: Yes Pt/Guardian Understands and Agrees with Anesthesia Plan: Yes PreAnesthesia Questionnaire - Past Health History Medical/Surgical History: Denies Medical/Surgical History Cardiovascular History: Reports: None Respiratory History: Reports: Asthma Gastrointestinal History: Reports: None, GERD Musculoskeletal History: Reports: None Oncologic (Cancer) History: Reports: None - Infectious Disease History Infectious Disease History: Reports: Chicken Pox - Past Surgical History HEENT Surgical History: Reports: Oral Surgery, Tonsillectomy Musculoskeletal Surgical History: Reports: Arthroscopic Knee Other Musculoskeletal Surgeries/Procedures:: ganglion removal R wrist - SUBSTANCE USE Tobacco Use Status *Q: Current Every Day Tobacco User Tobacco Use Within Last Twelve Months: Cigarettes Second Hand Smoke Exposure: No Days Per Week of Alcohol Use: 1 Number of Drinks Per Day: 2 Total Drinks Per Week: 2 Recreational Drug Use History: No - HOME MEDS Home Medications: Home Meds Albuterol Sulfate [Proair Hfa] 2 puff INH Q4H PRN 06/22/18 [History] Acetaminophen/HYDROcodone [[place] 325-5 MG] 1 - 2 tab PO Q6H PRN #10 tablet 08/13/20 [Rx] - CURRENT (IN HOUSE) MEDS Current Meds: Current Medications Lactated Ringer's (Ringers, Lactated) 1,000 mls @ 125 mls/hr IV ASDIRECTED SRIDHAR Stop: 09/15/20 23:00 Last Admin: 09/15/20 13:20 Dose: 125 mls/hr Documented by: Lidocaine/Sodium Bicarbonate (Buffered Lidocaine 1% In Ns 8.4%) 0.25 ml IDERM ONETIME PRN PRN Reason: Prior to IV Start Stop: 09/15/20 18:00 Last Admin: 09/15/20 13:20 Dose: 0.25 ml Documented by: Sodium Chloride (Saline Flush) 10 ml FLUSH ASDIRECTED PRN PRN Reason: Keep Vein Open Stop: 09/15/20 18:00 Discontinued Medications Bupivacaine HCl (Sensorcaine-Mpf 0.25%) Confirm Administered Dose 20 ml .ROUTE .STK-MED ONE Stop: 09/15/20 13:49 Bupivacaine HCl (Sensorcaine-Mpf 0.25%) Confirm Administered Dose 10 ml .ROUTE .STK-MED ONE Stop: 09/15/20 13:49 Lidocaine HCl (Xylocaine-Mpf 1%) Confirm Administered Dose 30 ml .ROUTE .STK-MED ONE Stop: 09/15/20 13:49
[2020-09-15] MEDS ORDERED: Lidocaine 1% 4 ML ONE (14:16)
[2020-09-15] MEDS ORDERED: ceFAZolin 1 GM Vial ONE (14:26)
[2020-09-15] MEDS ORDERED: Lactated Ringers 1,000 ML ONE (15:01)
--- NOTE | 2020-09-15 15:17 | PCM48HPAN ---
Post Anesthesia Note - EVALUATION WITHIN 48HRS OF ANESTHETIC Vital Signs in Normal Range: Yes Patient Participated in Evaluation: Yes Respiratory Function Stable: Yes Airway Patent: Yes Cardiovascular Function Stable: Yes Hydration Status Stable: Yes Pain Control Satisfactory: Yes Nausea and Vomiting Control Satisfactory: Yes Mental Status Recovered: Yes Vital Signs: Last Vital Signs Temp 36.7 C 09/15/20 12:50 Pulse 70 09/15/20 12:50 Resp 16 09/15/20 12:50 BP 132/81 09/15/20 12:50 Pulse Ox 100 09/15/20 12:50
[2020-09-15 16:03] VITALS: BP 103/71; PULSE 78
--- NOTE | 2020-09-26 07:38 | PCM.OPNOTE ---
- General Post-Op/Procedure Note Date of Surgery/Procedure: 09/15/20 Operative Procedure(s): irrigation and debridement of right dorsal wrist incision Pre Op Diagnosis: abscess right dorsal wrist Post-Op Diagnosis: Same Anesthesia Technique: Local, MAC Primary Surgeon: Jacobo Marcos Anesthesia Provider: Sujata Maria Vehicle Operator Technician: Carmen Mcclellan EBL in mLs: 5 Complications: None Condition: Good
--- NOTE | 2020-09-26 08:09 | OR ---
DATE OF OPERATION: 09/15/2020 SURGEON: Jacobo Marcos MD OPERATION PERFORMED: Irrigation and debridement of right dorsal wrist incision less than 1 cm2 of subcutaneous tissue and skin. PREOPERATIVE DIAGNOSIS: Abscess, right dorsal wrist. POSTOPERATIVE DIAGNOSIS: Abscess, right dorsal wrist. ANESTHESIA: Local MAC. ANESTHESIA PROVIDER: Sujata Maria. RAILROAD DISPATCHER: ESTIMATED BLOOD LOSS: Less than 5 mL. COMPLICATIONS: None. CONDITION: Stable. DESCRIPTION OF PROCEDURE: The patient was identified in the preoperative holding area. Proper site was marked and identified by the surgeon. The patient was taken back to the operating theater, where after adequate anesthesia, the patient's left upper extremity was sterilely prepped and draped in the usual sterile fashion. OR time-out was performed. The patient received 2 g IV Ancef. At this time, 1% lidocaine without epinephrine and 0.25% Marcaine without epinephrine were used to anesthetize in a wheel around the previous incision. There was some erythema. No drainage noted from the incision. At this time, I opened the previous incision. The patient was noted to have some Vicryl stitches deep. These were then removed. I did resect a less than 1 cm2 of subcutaneous tissue that did show inflammation. There was no purulent material noted deep. The capsule seemed intact with no signs of purulent material deep. At this time, 1 L of normal saline was irrigated through the wound and then 4-0 nylon suture was used for closure of the skin. The patient was placed in a sterile soft dressing and sent to the PACU in stable condition. Please note, we did take cultures during the procedure for antibiotics. MMODAL /[id number]
== END 2020-09-15 16:00 | disposition home or self-care (01) ==
LOC: JD.SDS 12:51
PROVIDERS: ATTEND Orthopaedic Surgery
DX: T81.41XA Infection following a procedure, superficial incisional surgical site, initial encounter (principal); Z01.812 Encounter for preprocedural laboratory examination; Z20.828 Contact with and (suspected) exposure to other viral communicable diseases; F17.210 Nicotine dependence, cigarettes, uncomplicated; Z79.899 Other long term (current) drug therapy
CPT/HCPCS: 10060; 87075; 87077; 87186; 87205; 87635; 87641; J0690; J2001; J2250; J2704; J3010; J3490; J7120; 00400; U0002